=== PATIENT | female | born 1980 | race Caucasian/White ===

== ENCOUNTER 2016-04-21 16:25 | Emergency (ER) | payer OTHER ==
[~2016-04-21] VITALS: Wt 91.5 kg
[~2016-04-21 16:25] MED LIST: CIPR500T4 PO; FAMO20TA18 PO; HYDR-3498 PO; HYDR-906 PO; LOPE2CAP PO; METR500T PO; ONDA4TAB35 PO; ONDA4TAB8 PO; no meds
[2016-04-21] MEDS ORDERED: KETOROLAC 30 MG INJ IV STA (19:48)
--- NOTE | 2016-04-21 19:53 | ERD ---
ER Documentation Chief Complaint Date/Time DATE: 04/21/16 TIME: 19:49 Chief Complaint cwp rad into shoulders and back, worse on inspiration HPI Patient is a 36-year-old female who reports sudden onset sharp central chest pain that radiates through to her back. 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 She denies any chest trauma, fever, coughing, chest congestion, swelling of her extremities, recent trauma, or hemoptysis. She states that she has never experienced this before. It hurts more when she takes a deep breath. She states she was in her usual state of health before this began. Nothing seems to help it. She is not currently on any control pills, she has not had any recent surgeries nor has she traveled long distances. She does feel somewhat short of breath because of the pain. She denies any nausea, vomiting, diarrhea, abdominal pain , abnormal menses, flank or back pain. ROS All systems reviewed and are negative except as per history of present illness. Medications Home Meds Active Scripts Naproxen* (Naprosyn*) 500 Mg Tablet, 500 MG PO BID Y for PAIN AND/OR INFLAMMATION, #30 TAB 0 Refills Prov:CORI EDGAR 04/21/16 Tramadol HCl (Tramadol HCl) 50 Mg Tablet, 100 MG PO Q6, #20 TAB 0 Refills Prov:CORI EDGAR 04/21/16 Ondansetron Hcl* (Zofran* ODT) 4 mg -ODT Tab.disper, 4 MG PO Q6 Y for NAUSEA AND /OR VOMITING, #10 TAB Prov:DUSTIN EMANUEL MD 03/21/15 Metronidazole* (Flagyl*) 500 Mg Tablet, 500 MG PO TID for 10 Days, TAB Prov:DUSTIN EMANUEL MD 03/21/15 Ciprofloxacin Hcl* (Ciprofloxacin Hcl*) 500 Mg Tablet, 500 MG PO BID, #10 TAB Prov:DUSTIN EMANUEL MD 03/21/15 Hydrocodone Bit-Acetaminophen* ([place]*) 5-325 Mg Tab, 1 TAB PO Q6 Y for PAIN, # 7 TAB Prov:VERO RIZO DO 03/13/15 Loperamide Hcl* (Imodium*) 2 Mg Capsule, 2 MG PO .AFTER EA LOOSE BM Y for DIARRHEA, #10 TAB Prov:VERO RIZO DO 03/13/15 Ondansetron Hcl* (Zofran*) 4 Mg Tablet, 4 MG PO Q8H Y for NAUSEA AND/OR VOMITING , #10 TAB Prov:VERO RIZO DO 03/13/15 Famotidine* (Famotidine*) 20 Mg Tablet, 20 MG PO BID, #30 TAB Prov:NIKOLASKEN PA-C 02/15/15 Hydrocodone Bit-Acetaminophen ([place]) 5-325 Mg Tablet, 1 TAB PO Q4H Y for PAIN, #20 TAB Prov:NIKOLASKEN PA-C 02/15/15 Reported Medications [no meds] No Conflict Check 09/19/13 Allergies Allergies: Coded Allergies: No Known Allergy (Unverified , 03/20/15) PMhx/Soc History of Surgery: Yes (gallbladder) Anesthesia Reaction: No Hx Neurological Disorder: No Hx Respiratory Disorders: No Hx Cardiac Disorders: No Hx Psychiatric Problems: No Hx Miscellaneous Medical Probl: No Hx Alcohol Use: No Hx Substance Use: No Hx Tobacco Use: No Smoking Status: Never smoker FmHx Family History: No coronary disease Physical Exam Vitals Vital Signs Date Time Temp Pulse Resp B/P Pulse Ox O2 Delivery O2 Flow Rate FiO2 04/21/16 20:29 79 16 121/77 99 Room Air 04/21/16 16:50 99.0 74 20 122/75 99 Physical Exam Const: Well-developed well-nourished female sitting on the bed in no acute distress Head: Atraumatic normocephalic Eyes: Normal Conjunctiva ENT: Normal External Ears, Nose and Mouth. Neck: Full range of motion..~ No meningismus. Resp: Clear to auscultation bilaterally Cardio: Regular rate and rhythm, no murmurs, moderate tenderness to palpation however the patient states this is not the pain she is experiencing Abd: Soft, non tender, non distended. Normal bowel sounds Skin: No petechiae or rashes Back: No midline or flank tenderness Ext: No cyanosis, or edema no calf tenderness, negative Homans sign Neur: Awake and alert oriented 3 with a GCS of 15 Psych: Normal Mood and Affect Result Diagram: 04/21/16201904/21/162019 Results 24 hrs Laboratory Tests Test 04/21/16 20:20 Activated Partial Thromboplast Time 23.3Sec Alanine Aminotransferase (ALT/SGPT) 25IU/L Albumin 4.0g/dl Albumin/Globulin Ratio 1.00 Alkaline Phosphatase 72IU/L Anion Gap 16 Aspartate Amino Transf (AST/SGOT) 19IU/L Basophils # 0.010^3/ul Basophils % 0.5% Blood Urea Nitrogen 7mg/dl Calcium Level 8.7mg/dl Carbon Dioxide Level 26mmol/L Chloride Level 105mmol/L Creatinine 0.78mg/dl Direct Bilirubin 0.00mg/dl Eosinophils # 0.310^3/ul Eosinophils % 3.3% Globulin 4.00g/dl Glucose Level 121mg/dl Hematocrit 38.7% Hemoglobin 13.4g/dl INR International Normalized Ratio 0.92 Indirect Bilirubin 0.2mg/dl Lymphocytes # 3.110^3/ul Lymphocytes % 37.8% Mean Corpuscular Hemoglobin 31.6pg Mean Corpuscular Hemoglobin Concent 34.5g/dl Mean Corpuscular Volume 91.7fl Mean Platelet Volume 9.6fl Monocytes # 0.510^3/ul Monocytes % 5.6% Neutrophils # 4.410^3/ul Neutrophils % 52.8% Nucleated Red Blood Cells # 0.010^3/ul Nucleated Red Blood Cells % 0.0/100WBC Platelet Count 05481^3/UL Potassium Level 3.5mmol/L Prothrombin Time 12.4Sec Prothrombin Time Ratio 1.0 Red Blood Count 4.2310^6/ul Red Cell Distribution Width 14.1% Sodium Level 143mmol/L Total Bilirubin 0.2mg/dl Total Protein 8.0g/dl Troponin I Pending White Blood Count 8.310^3/ul Current Medications Medications (Trade) Dose Ordered Sig/Martin Route PRN Reason Start Time Stop Time Status Last Admin Dose Admin Ketorolac Tromethamine (Toradol) 30 mg ONCE STAT IV 04/21/16 19:48 04/21/16 19:49 DC 04/21/16 20:24 Procedures/MDM Medical decision making: Patient is a 36-year-old female who presents with acute onset sharp chest pain radiating through to the back which is pleuritic in nature. Although she does not have any identifiable risk factors for pulmonary embolus this would be the most concerning diagnosis to consider. I will evaluate her for possible pulmonary emboli, pneumothorax, bronchitis, pneumonia, atypical chest pain, chest wall pain. Hopefully she will rule out for anything serious and be able to be discharged home. EKG: Rate/Rhythm: Normal sinus rhythm at 80 bpm with no evidence of ischemia, no PE pattern noted, no old EKG available for comparison QRS, ST, T-waves: No changes consistent w/ acute ischemia Impression: No evidence of ischemia or arrhythmia 2100: Patient's care is turned over to Dr. Emanuel with a CT of the chest pending. Dr. Emanuel is to review the CAT scan of the chest and make a disposition based upon this. Departure Diagnosis: Primary Impression: Chest pain Chest pain type: chest pain on breathing Qualified Code: R07.1 - Chest pain on breathing Condition: Good Patient Instructions: Chest Pain, Uncertain Cause Additional Instructions: Activity as tolerated. Please see her primary care physician in follow-up for further evaluation and treatment of your pain continues. Return to the emergency department for any new or worsening symptoms. CORI EDGAR Apr 21, 2016 19:53
--- NOTE | 2016-04-21 20:18 | RADRPT ---
PROCEDURE: XR Chest. CLINICAL INDICATION: Chest pain. TECHNIQUE: Single frontal chest x-ray. COMPARISON: None available. FINDINGS: The cardiomediastinal silhouette is unremarkable. No pneumothorax, pleural effusion or consolidation is seen. No acute osseous abnormality is noted. IMPRESSION: 1. No acute cardiopulmonary abnormality. RPTAT: HFN .Juliette Kumar MD, Date Time Electronically viewed and signed by .Juliette Kumar MD, on 04/21/2016 20:18 .N/
[2016-04-21] MEDS ORDERED: ULT50 PO (20:27)
[2016-04-21] MEDS ORDERED: NAPR-260 PO (20:28)
[2016-04-21 20:29] VITALS: RESP 16
[2016-04-21 20:33] LABS: BASOPHILS % 0.5 % (0.0-2.0); EOSINOPHILS # 0.3 10^3/ul (0.0-0.5); EOSINOPHILS % 3.3 % (0.0-7.0); HEMATOCRIT 38.7 % (37.0-47.0); HEMOGLOBIN 13.4 g/dl (12.0-16.0); LYMPHOCYTES # 3.1 10^3/ul (0.8-2.9); LYMPHOCYTES % 37.8 % (15.0-51.0); MEAN CORPUSCULAR HEMOGLOBIN 31.6 pg (29.0-33.0); MEAN CORPUSCULAR HGB CONC 34.5 g/dl (32.0-37.0); MEAN CORPUSCULAR VOLUME 91.7 fl (82.0-101.0); MEAN PLATELET VOLUME 9.6 fl (7.4-10.4); MONOCYTE # 0.5 10^3/ul (0.3-0.9); MONOCYTES % 5.6 % (0.0-11.0); NEUTROPHIL # 4.4 10^3/ul (1.6-7.5); NEUTROPHILS % 52.8 % (39.0-77.0); PLATELET COUNT 245 10^3/UL (140-440); RED BLOOD COUNT 4.23 10^6/ul (4.20-5.40); RED CELL DISTRIBUTION WIDTH 14.1 % (11.5-14.5); UNCORRECTED WBC 8.3 10^3/ul (4.8-10.8); WHITE BLOOD COUNT 8.3 10^3/ul (4.8-10.8)
[2016-04-21 20:37] LABS: CONDITION 1
[2016-04-21 20:40] LABS: CHLORIDE 105 mmol/L (97-110); INR 0.92; POTASSIUM 3.5 mmol/L (3.5-5.1); PROTIME 12.4 Sec (12.2-14.2); SODIUM 143 mmol/L (135-144)
[2016-04-21 20:41] LABS: PARTIAL THROMBOPLASTIN TIME 23.3 Sec (25.0-35.0)
[2016-04-21 20:42] LABS: BILIRUBIN,INDIRECT 0.2 mg/dl (0-1.1); BILIRUBIN,TOTAL 0.2 mg/dl (0.2-1.3); CREATININE 0.78 mg/dl (0.44-1.00)
[2016-04-21 20:43] LABS: ALANINE AMINOTRANSFERASE 25 IU/L (13-69); ALKALINE PHOSPHATASE 72 IU/L (42-121); ANION GAP 16 (8-16); ASPARTATE AMINO TRANSFERASE 19 IU/L (15-46); BLOOD UREA NITROGEN 7 mg/dl (7-20); CALCIUM 8.7 mg/dl (8.4-10.2); CARBON DIOXIDE 26 mmol/L (21-31); GLUCOSE 121 mg/dl (70-220)
[2016-04-21 20:57] LABS: TROPONIN-I < 0.012 ng/ml (0.00-0.12)
[2016-04-21] MEDS ORDERED: SOD CHLORIDE 0.9% 100 ML ONE (21:24)
[2016-04-21] MEDS ORDERED: IOHEXOL 100 ML ONE (21:24)
[2016-04-21] MEDS ORDERED: IOHEXOL 350MG/ML 50 ML BTL ONE (21:24)
--- NOTE | 2016-04-21 22:06 | RADRPT ---
PROCEDURE: CT Pulmonary Angiogram CLINICAL INDICATION: Chest pain TECHNIQUE: Volumetric acquisition of the thorax was performed following the intravenous administra tion of contrast with the bolus of contrast time to maximize pulmonary artery opacification. One or more of the following dose reduction techniques were used: - Automated exposure control. - Adjustment of the mA and/or kV according to patient size. - Use of iterative reconstruction technique. Radiation Dose: CTDI = 32 mGy; DLP = 745.38 mGy-cm. COMPARISON: None. FINDINGS: Pulmonary Arteries: There is no intrinsic filling defect seen within the pulmonary arteries to sugge st pulmonary embolization. Other cardiovascular structures: The heart is upper normal in size. There is no pericardial effusio n. The aorta is intact and normal in caliber. The brachial cephalic vessels appear patent. Lung hayes: The lung hayes are clear with no nodule, infiltrate, or interstitial prominence. The pleural spaces: No effusion or pneumothorax is identified. Lymph nodes: No pathologically enlarged nodes are evident. Thyroid: Unremarkable. Superior abdominal structures: The liver is borderline enlarged. Osseous structures: Appear intact. IMPRESSION: Unremarkable CT pulmonary angiogram. Physician Judy Date Time Electronically viewed and signed by Physician Judy on 04/21/2016 22:05 /
[2016-04-21 22:25] VITALS: BP 112/54; PULSE 86; TEMP 98.2
== END 2016-04-22 02:25 | disposition home or self-care (01) ==
LOC: E/R 16:25
DX: R07.1 Chest pain on breathing (principal)
CPT/HCPCS: 36415; 71010; 71275; 80053; 84484; 84702; 85025; 85610; 85730; 93005; 96374; J1885; Q9967; Z7502; Z7610

== ENCOUNTER 2016-06-21 13:53 | Emergency (ER) | payer OTHER ==
[~2016-06-21] VITALS: Ht 165.1 cm; Wt 93.0 kg
[~2016-06-21 13:53] MED LIST changes: -CIPR500T4 PO; -FAMO20TA18 PO; -HYDR-3498 PO; -HYDR-906 PO; -LOPE2CAP PO; -METR500T PO; +NAPR-260 PO; -ONDA4TAB35 PO; -ONDA4TAB8 PO; +TRAM50TA2 PO; -no meds
[2016-06-21 14:12] VITALS: Ht 165.1 cm; Wt 93.0 kg
[2016-06-21] MEDS ORDERED: IBUP800T25 PO (15:54)
--- NOTE | 2016-06-21 16:03 | ERD ---
ER Documentation Chief Complaint Date/Time DATE: 06/21/16 TIME: 16:02 Chief Complaint L ear pain and st x 3 days HPI 36-year-old female presents with 2-3 days of subjective fevers, sore throat and left ear pain. Pain is moderate and throbbing, multiple sick contacts including family members with viral syndrome. No difficulty breathing, no neck stiffness, no difficulty swallowing. ROS All systems reviewed and are negative except as per history of present illness. Medications Home Meds Active Scripts Ibuprofen* (Motrin*) 800 Mg Tab, 800 MG PO Q6H Y for PAIN AND OR ELEVATED TEMP, #30 TAB Prov:JHONY SAEED MD 06/21/16 Naproxen* (Naprosyn*) 500 Mg Tablet, 500 MG PO BID Y for PAIN AND/OR INFLAMMATION, #30 TAB 0 Refills Prov:CORI EDGAR 04/21/16 Tramadol HCl (Tramadol HCl) 50 Mg Tablet, 100 MG PO Q6, #20 TAB 0 Refills Prov:CORI EDGAR 04/21/16 Allergies Allergies: Coded Allergies: No Known Allergy (Unverified , 04/21/16) PMhx/Soc Medical and Surgical Hx: pt denies Medical Hx History of Surgery: Yes (gallbladder) Anesthesia Reaction: No Hx Neurological Disorder: No Hx Respiratory Disorders: No Hx Cardiac Disorders: No Hx Psychiatric Problems: No Hx Miscellaneous Medical Probl: No Hx Alcohol Use: No Hx Substance Use: No Hx Tobacco Use: No Smoking Status: Never smoker FmHx Family History: No diabetes Physical Exam Vitals Vital Signs Date Time Temp Pulse Resp B/P Pulse Ox O2 Delivery O2 Flow Rate FiO2 06/21/16 14:12 99.5 91 18 117/71 98 Physical Exam General: Well developed, well nourished, no acute distress Head: Normocephalic, atraumatic. Eyes: Pupils equally reactive, EOM intact ENT: Moist mucous membranes, posterior pharynx with slight erythema, no tonsillar swelling or exudates, tympanic membranes are nonbulging bilaterally Neck: Supple, no lymphadenopathy Respiratory: Lungs clear bilaterally, no distress Cardiovascular: RRR, no murmurs, rubs, or gallops Abdominal: Soft, non-tender, non-distended, no peritoneal signs : Deferred MSK: No edema, no unilateral swelling, 5/5 strength Neurologic: Alert and oriented, moving all extremities, normal speech, no focal weakness, no cerebellar signs Skin: No rash Psych: Normal mood Procedures/MDM The patient's clinical presentation is very consistent with an acute viral syndrome. The patient does not exhibit any clinical signs or symptoms concerning for serious bacterial infection or systemic illness. Based on history and clinical exam findings the patient does not appear to have evidence of pneumonia, strep pharyngitis, urinary tract infection, bacteremia, sepsis, or meningitis. For these reasons I do not believe it is necessary to obtain laboratory testing or diagnostic imaging. I believe it would be appropriate for symptom control, and close outpatient primary care follow-up. We discussed follow up with the patient's primary care doctor within 24 to 48 hours as needed. We also discussed return to the emergency room for worsening symptoms or worsening condition. Discharge Medications: Motrin, recommended Mucinex for decongestant Departure Diagnosis: Primary Impression: Viral pharyngitis Condition: Stable Patient Instructions: Pharyngitis, Viral Referrals: [facility] YOU HAVE RECEIVED A MEDICAL SCREENING EXAM AND THE RESULTS INDICATE THAT YOU DO NOT HAVE A CONDITION THAT REQUIRES URGENT TREATMENT IN THE EMERGENCY DEPARTMENT. FURTHER EVALUATION AND TREATMENT OF YOUR CONDITION CAN WAIT UNTIL YOU ARE SEEN IN YOUR DOCTORS OFFICE WITHIN THE NEXT 1-2 DAYS. IT IS YOUR RESPONSIBILITY TO MAKE AN APPOINTMENT FOR FOLOW-UP CARE. IF YOU HAVE A PRIMARY DOCTOR --you should call your primary doctor and schedule an appointment IF YOU DO NOT HAVE A PRIMARY DOCTOR YOU CAN CALL OUR PHYSICIAN REFERRAL HOTLINE AT IF YOU CAN NOT AFFORD TO SEE A PHYSICIAN YOU CAN CHOSE FROM THE FOLLOWING [facility] [address] [facility] [address] [facility] [address] [facility] [address] [facility] [address] [facility]. [facility]. [address] [facility]. [facility] YOU HAVE RECEIVED A MEDICAL SCREENING EXAM AND THE RESULTS INDICATE THAT YOU DO NOT HAVE A CONDITION THAT REQUIRES URGENT TREATMENT IN THE EMERGENCY DEPARTMENT. FURTHER EVALUATION AND TREATMENT OF YOUR CONDITION CAN WAIT UNTIL YOU ARE SEEN IN YOUR DOCTORS OFFICE WITHIN THE NEXT 1-2 DAYS. IT IS YOUR RESPONSIBILITY TO MAKE AN APPOINTMENT FOR FOLOW-UP CARE. IF YOU HAVE A PRIMARY DOCTOR --you should call your primary doctor and schedule and appointment IF YOU DO NOT HAVE A PRIMARY DOCTOR YOU CAN CALL OUR PHYSICIAN REFERRAL HOTLINE AT . IF YOU CAN NOT AFFORD TO SEE A PHYSICIAN YOU CAN CHOSE FROM THE FOLLOWING [facility] INSTITUTIONS: [facility] [address] [place] [address] [facility] [address] [place] [address] [facility] + [facility] [address] [place] [address] Additional Instructions: Call your primary care doctor TOMORROW for an appointment during the next 1 WEEK.Tell the department secretary that you were referred from this facility.See the doctor sooner or return here if your condition worsens before your appointment time. JHONY SAEED MD Jun 21, 2016 16:03
== END 2016-06-21 16:20 | disposition home or self-care (01) ==
LOC: FTE 13:53
DX: J02.8 Acute pharyngitis due to other specified organisms (principal); B97.89 Other viral agents as the cause of diseases classified elsewhere
CPT/HCPCS: 99283

== ENCOUNTER 2017-02-15 17:01 | Emergency (ER) | payer OTHER ==
[~2017-02-15] VITALS: Wt 88.2 kg
[~2017-02-15 17:01] MED LIST changes: +IBUP800T25 PO
[2017-02-15 17:03] VITALS: Wt 88.2 kg
[2017-02-15 19:42] VITALS: BP 130/80; PULSE 89; RESP 20; TEMP 97.2
[2017-02-15] MEDS ORDERED: IBUPROFEN 800 MG TAB PO ONE (20:00)
[2017-02-15] MEDS ORDERED: IBUP-1542 PO (20:09)
--- NOTE | 2017-02-15 20:11 | ERD ---
ER Documentation Chief Complaint Chief Complaint INTERMITTENT CP SINCE LAST NIGHT, THROAT AND JAW PRESSURE HPI Patient is a 36-year-old female with no medical problems who presents with chest pain. She said that she got in an argument last night and afterwards she started with chest pain. It went away and then came back today. She felt pain in her jaws well. It lasted 2 minutes when it came and then went away. She no longer has pain. She has had no treatment as of yet. The patient does not remember the name of the primary doctor. Upon review of old medical records the patient has multiple visits to the ER for various complaints. ROS All systems reviewed and are negative except as per history of present illness. Medications Home Meds Active Scripts Ibuprofen* (Motrin*) 600 Mg Tab, 600 MG PO Q6H Y for PAIN AND OR ELEVATED TEMP, #30 TAB Prov:HOA HANNAH MD 02/15/17 Ibuprofen* (Motrin*) 800 Mg Tab, 800 MG PO Q6H Y for PAIN AND OR ELEVATED TEMP, #30 TAB Prov:JHONY SAEED MD 06/21/16 Naproxen* (Naprosyn*) 500 Mg Tablet, 500 MG PO BID Y for PAIN AND/OR INFLAMMATION, #30 TAB 0 Refills Prov:CORI EDGAR 04/21/16 Tramadol HCl (Tramadol HCl) 50 Mg Tablet, 100 MG PO Q6, #20 TAB 0 Refills Prov:CORI EDGAR 04/21/16 Allergies Allergies: Coded Allergies: No Known Allergy (Unverified , 04/21/16) PMhx/Soc Medical and Surgical Hx: pt denies Medical Hx, pt denies Surgical Hx History of Surgery: Yes (gallbladder) Anesthesia Reaction: No Hx Neurological Disorder: No Hx Respiratory Disorders: No Hx Cardiac Disorders: No Hx Psychiatric Problems: No Hx Miscellaneous Medical Probl: No Hx Alcohol Use: No Hx Substance Use: No Hx Tobacco Use: No Smoking Status: Never smoker FmHx Family History: No coronary disease Physical Exam Vitals Vital Signs Date Time Temp Pulse Resp B/P Pulse Ox O2 Delivery O2 Flow Rate FiO2 02/15/17 19:42 97.2 89 20 130/80 97 02/15/17 17:03 97.2 68 20 124/76 97 Physical Exam Const: No acute distress Head: Atraumatic Eyes: Normal Conjunctiva ENT: Normal External Ears, Nose and Mouth. Neck: Full range of motion..~ No meningismus. Resp: Clear to auscultation bilaterally Cardio: Regular rate and rhythm, no murmurs Abd: Soft, non tender, non distended. Normal bowel sounds Skin: No petechiae or rashes Back: No midline or flank tenderness Ext: No cyanosis, or edema Neur: Awake and alert Psych: Normal Mood and Affect Results 24 hrs Current Medications Medications (Trade) Dose Ordered Sig/Martin Route PRN Reason Start Time Stop Time Status Last Admin Dose Admin Ibuprofen (Motrin) 800 mg ONCE ONCE PO 02/15/17 20:00 02/15/17 20:01 DC 02/15/17 19:59 Procedures/MDM EKG read by me: Rate/Rhythm: Regular rate and rhythm at a rate of 83 Intervals: Normal Impression: No evidence of ischemia or arrhythmia Chest X-ray 1V Interpreted by me: Soft Tissue: No acute abnormalities Bones: No acute abnormalities Mediastinum/Cardiac Silhouette/Lungs: No acute abnormalities test is negative. Patient is a 36-year-old female with no cardiac risk factors who presents with chest pain and shortness of breath. The patient was given ibuprofen. She has no pain at this time. Her EKG is normal and chest x-ray is normal. test is negative. I doubt acute coronary syndrome, pneumonia, pneumothorax, pulmonary embolism, or aortic dissection. The patient went to follow-up closely with her primary doctor within 24-48 hours but she can return if symptoms worsen. Departure Diagnosis: Primary Impression: Chest pain Chest pain type: unspecified Qualified Code: R07.9 - Chest pain, unspecified type Condition: Fair Patient Instructions: Chest Pain, Uncertain Cause Referrals: Your doctor Additional Instructions: Call your primary care doctor TOMORROW for an appointment during the next 1-2 days.See the doctor sooner or return here if your condition worsens before your appointment time. HOA HANNAH MD Feb 15, 2017 20:11
--- NOTE | 2017-02-15 20:14 | RADRPT ---
PROCEDURE: XR Chest. CLINICAL INDICATION: Chest pain. TECHNIQUE: Single frontal view of the chest was obtained COMPARISON: Chest radiograph dated April 21, 2016. FINDINGS: The heart and mediastinum are within normal limits. The lungs are clear. There is no pleural effusion or pneumothorax. The osseous structures are unremarkable. IMPRESSION: 1. No acute cardiopulmonary disease. RPTAT:AAJJ Physician Emmanuel Date Time Electronically viewed and signed by Olya Kwok Physician on 02/15/2017 20:14 QL/
== END 2017-02-15 20:14 | disposition home or self-care (01) ==
LOC: E/R 17:01
DX: R07.9 Chest pain, unspecified (principal)
CPT/HCPCS: 71010; 93005; Z7502; Z7610

== ENCOUNTER 2017-04-26 16:58 | Emergency (ER) | END 2017-04-26 21:30 | disposition home or self-care (01) ==

== ENCOUNTER 2017-06-16 13:18 | Emergency (ER) | END 2017-06-16 19:14 | disposition home or self-care (01) ==